=== PATIENT | male | born 1950 | race Caucasian/White ===

== ENCOUNTER 2017-06-08 09:09 | Inpatient (IN) | payer MEDICARE ==
[~2017-06-08] VITALS: Ht 185.4 cm; Wt 93.5 kg
[2017-06-08] VITALS (9 sets, daily range): BP systolic 130–174; BP diastolic 63–78; PULSE 77–97; RESP 16; TEMP 98–98.7; O2SAT 95–98
[~2017-06-08 09:09] MED LIST: AMLO5 PO; IRBE150T49 PO; PLAV75TA29 PO
--- NOTE | 2017-06-08 09:36 | PD.HP.UP ---
H&P Update Note The Pre-Admit History and Physical Examination regarding the above named patient was reviewed (including, but not limited to, vital signs, heart, lungs, co-morbid conditions), and upon re-examination it is noted that: the patient's condition has not significantly changed since the last examination. Kosta Alvarado MD Jun 08, 2017 09:36
[2017-06-08] MEDS ORDERED: LACTATED RINGER'S 1000 ML IV PRN (09:45)
[2017-06-08] MEDS ORDERED: POVIDONE IODINE 5% (ANTISEPSIS KIT) 4 APPLICATIONS EACH NARE PRN (09:45)
[2017-06-08] MEDS ORDERED: CHLORHEXIDINE GLUCONATE 2 % 1 PACK (2 CLOTHS) TOPICAL PRN (09:45)
[2017-06-08] MEDS ORDERED: SODIUM CHLORID 0.9% 500 ML IV PRN (09:45)
[2017-06-08] MEDS ORDERED: METOPROLOL TARTRATE 25 MG TAB PO PRN (09:45)
[2017-06-08] MEDS ORDERED: METRONIDAZOLE 500 MG/100 ML ISONTONIC SOLN IV SCH (10:00)
[2017-06-08] MEDS ORDERED: ceFAZolin 1,000 MG/NS 100 ML IV SCH ×2 (10:00)
[2017-06-08] MEDS ORDERED: ALVIMOPAN 12 MG CAPSULE - On Call PO SCH (10:00)
[2017-06-08] MEDS ORDERED: DEXT 5%-NACL 0.9% 1000 ML INJ 1,000 ML IV SCH (10:00)
[2017-06-08 10:25] LABS: BACTERIA, URINE OCC /hpf; BILIRUBIN, URINE NEG (NEG); BLOOD, URINE NEG (NEG); GLUCOSE,URINE NEG (NEG); HYALINE CAST, URINE 12 /lpf (RARE); KETONE, URINE TRACE mg/dL (NEG); MUCUS URINE FEW /lpf (OCC); NITRITE,URINE NEG (NEG); URINE COLOR LIGHT-RED (YELLW/STRAW); URINE LEUKOCYTE ESTERASE SMALL (NEG)
[2017-06-08 10:42] LABS: AUTOMATED NEUTROPHIL # 3.4 TH/MM3 (1.8-7.7); BASOPHIL # 0.1 TH/MM3 (0-0.2); BASOPHIL % 1.4 % (0.0-2.0); EOSINOPHIL # 0.1 TH/MM3 (0-0.4); EOSINOPHIL % 1.6 % (0.0-4.0); HEMOGLOBIN 13.2 GM/DL (13.0-17.0); LYMPH % 11.9 % (9.0-44.0); LYMPHOCYTE # 0.5 TH/MM3 (1.0-4.8); MEAN CORPUSCULAR HEMOGLOBIN 28.5 PG (27.0-34.0); MEAN CORPUSCULAR HGB CONC 33.9 % (32.0-36.0); MONO % 9.4 % (0.0-8.0); MONOCYTE # 0.4 TH/MM3 (0-0.9); NEUT % 75.7 % (16.0-70.0); PLATELET COUNT 245 TH/MM3 (150-450); RED BLOOD COUNT 4.65 MIL/MM3 (4.50-5.90); RED CELL DISTRIBUTION WIDTH 16.6 % (11.6-17.2); WHITE BLOOD COUNT 4.5 TH/MM3 (4.0-11.0)
--- NOTE | 2017-06-08 10:47 | RADRPT ---
EXAM DATE/TIME: 06/08/2017 09:47 [facility] COMPARISON: No previous studies available for comparison. INDICATIONS : Evaluate for pneumonia, pneumothorax, or communicable disease. Pre op for ascending colectomy today. MEDICAL HISTORY : Hypertension. SURGICAL HISTORY : AAA repair. Multiple stents. ENCOUNTER: Initial ACUITY: 1 day PAIN SCORE: 0/10 LOCATION: Bilateral chest FINDINGS: A single view of the chest demonstrates the lungs to be symmetrically aerated without evidence of mas s, infiltrate or effusion. Thoracic stent graft is evident. The cardiomediastinal contours are unrem arkable. Osseous structures are intact. CONCLUSION: Thoracic stent graft. Lungs are clear. Johnie Hahn MD FACR on June 08, 2017 at 10:44 Board Certified Radiologist. This report was verified electronically.
[2017-06-08 10:50] LABS: PROTHROMBIN TIME - PATIENT 10.6 SEC (9.8-11.6)
[2017-06-08 10:59] LABS: ALBUMIN 3.5 GM/DL (3.4-5.0); AST (GOT) 12 U/L (15-37); BICARBONATE 21.7 MEQ/L (21.0-32.0); BLOOD UREA NITROGEN 6 MG/DL (7-18); CALCIUM 9.9 MG/DL (8.5-10.1); CHLORIDE 107 MEQ/L (98-107); CREATININE 1.16 MG/DL (0.60-1.30); GLOMERULAR FILTRATION RATE 63 ML/MIN (>89); GLUCOSE,RANDOM 109 MG/DL (74-106); SODIUM (NA) 140 MEQ/L (136-145)
[2017-06-08 11:00] LABS: ALT (GPT) 19 U/L (12-78)
[2017-06-08 11:02] LABS: ALKALINE PHOSPHATASE 88 U/L (45-117); TOTAL BILIRUBIN ADULT 0.5 MG/DL (0.2-1.0); TOTAL PROTEIN 7.6 GM/DL (6.4-8.2)
[2017-06-08] MEDS ORDERED: fentaNYL CITRATE 250 MCG/5 ML AMP ONE ×2 (11:24→12:54)
[2017-06-08] MEDS ORDERED: ACETAMINOPHEN 1000 MG/100 ML 100 ML IV ONE (11:25)
[2017-06-08] MEDS ORDERED: MIDAZOLAM HCL 2 MG/2 ML VIAL ONE (12:50)
[2017-06-08] MEDS ORDERED: DO NOT ADM ANY ANTICOAGULANT DRUGS PRN (13:26)
[2017-06-08] MEDS: D5-NS + KCL 20 MEQ INJ 1,000 ML IV SCH ×2 (13:34→20:10)
[2017-06-08] MEDS ORDERED: BENZOCAINE 6 MG/MENTHOL 10 MG LOZENGE BUCCAL PRN (13:45)
[2017-06-08] MEDS ORDERED: MORPHINE SULFATE 30 MG/30 ML PCA IV SCH (13:45)
[2017-06-08] MEDS ORDERED: POTASSIUM CHLOR 40 MEQ PREMIX 100 ML IV PRN (13:45)
[2017-06-08] MEDS ORDERED: ACETAMINOPHEN 325 MG TAB PO PRN (13:45)
[2017-06-08] MEDS ORDERED: BUPIVACAINE HCL PF 0.5% 30 ML VIAL NB SCH (13:45)
[2017-06-08] MEDS ORDERED: Post-op Orders (for Pharmacy) XX ONE (13:45)
[2017-06-08] MEDS ORDERED: ENALAPRILAT 2.5 MG/2 ML VIAL IV PUSH PRN (13:45)
[2017-06-08] MEDS ORDERED: ENALAPRILAT 1.25 MG/ML VIAL IV PUSH PRN (13:45)
[2017-06-08] MEDS ORDERED: POTASSIUM CHLOR 20 MEQ PREMIX 100 ML IV PRN (13:45)
[2017-06-08] MEDS ORDERED: ACETAMINOPHEN/HYDROcodone 325 MG/5 MG TAB PO PRN ×2 (13:45)
[2017-06-08] MEDS ORDERED: NALOXONE HCL 0.4 MG/ML AMP IV PUSH PRN (13:45)
[2017-06-08] MEDS ORDERED: *morphine SULFATE 8 MG/ML PERIprocedure ONLY ONE ×2 (13:51→15:17)
[2017-06-08] MEDS ORDERED: *ENALAPRILAT 1.25 MG/ML VIAL PERIprocedural Use ONLY ONE (14:04)
[2017-06-08] MEDS: amLODIPine BESYLATE 5 MG TAB PO SCH (15:00)
[2017-06-08] MEDS ORDERED: hydrALAZINE HCL 20 MG/ML VIAL ONE (16:15)
[2017-06-08] MEDS ORDERED: hydrALAZINE HCL 20 MG/ML VIAL IV ONE (16:30)
[2017-06-08] MEDS: ONDANSETRON HCL 4 MG/2 ML VIAL IV PUSH PRN ×2 (17:00→20:28)
[2017-06-08] MEDS: KETOROLAC TROMETHAMINE 30 MG/ML (IVP) VIAL IVP PRN (17:20)
--- NOTE | 2017-06-08 20:04 | EKG ---
Date Performed: 06/08/2017 Time Performed: 09:45:03 PTAGE: 67 years EKG: Sinus rhythm POSSIBLE INFERIOR MYOCARDIAL INFARCTION , PROBABLY OLD BORDERLINE ECG NO PREVIOUS TRACING DOCTOR: Killian Duran Interpretating Date/Time 06/08/2017 20:03:24
[2017-06-08] MEDS: metroNIDAZOLE 500 MG INJ 100 ML IV SCH (20:11)
[2017-06-08] MEDS: METOCLOPRAMIDE HCL 10 MG/2 ML VIAL IVS SCH (20:12)
[2017-06-08] MEDS: PCA - TOTAL MG MORPHINE DELIVERED PER SHIFT SCH (22:00)
[2017-06-09] VITALS (17 sets, daily range): BP systolic 157–186; BP diastolic 72–89; PULSE 80–99; RESP 16–20; TEMP 96.2–98.6; O2SAT 95–97
[2017-06-09] MEDS: D5-NS + KCL 20 MEQ INJ 1,000 ML IV SCH ×5 (01:00→18:51)
[2017-06-09] MEDS: metroNIDAZOLE 500 MG INJ 100 ML IV SCH ×2 (03:56→13:20)
[2017-06-09 05:18] LABS: AUTOMATED NEUTROPHIL # 7.7 TH/MM3 (1.8-7.7); BASOPHIL % 0.1 % (0.0-2.0); HEMATOCRIT 36.7 % (39.0-51.0); HEMOGLOBIN 12.1 GM/DL (13.0-17.0); LYMPH % 4.8 % (9.0-44.0); LYMPHOCYTE # 0.4 TH/MM3 (1.0-4.8); MEAN CELL VOLUME 85.7 FL (80.0-100.0); MEAN CORPUSCULAR HEMOGLOBIN 28.4 PG (27.0-34.0); MEAN CORPUSCULAR HGB CONC 33.1 % (32.0-36.0); MEAN PLATELET VOLUME 7.2 FL (7.0-11.0); MONOCYTE # 0.7 TH/MM3 (0-0.9); NEUT % 87.1 % (16.0-70.0); PLATELET COUNT 229 TH/MM3 (150-450); RED BLOOD COUNT 4.28 MIL/MM3 (4.50-5.90); RED CELL DISTRIBUTION WIDTH 16.5 % (11.6-17.2); WHITE BLOOD COUNT 8.9 TH/MM3 (4.0-11.0)
[2017-06-09 05:49] LABS: BICARBONATE 22.9 MEQ/L (21.0-32.0); CREATININE 1.1 MG/DL (0.60-1.30)
[2017-06-09] MEDS: PCA - TOTAL MG MORPHINE DELIVERED PER SHIFT SCH ×3 (06:00→20:11)
--- NOTE | 2017-06-09 08:09 | HHI.PR ---
Subjective Remarks C/R Surg POD #1 afebrile, VSS UO good Objective - Vital Signs Date Time Temp Pulse Resp B/P (MAP) Pulse Ox O2 Delivery O2 Flow Rate FiO2 06/09/17 07:00 92 06/09/17 06:00 16 06/09/17 03:00 98.6 158/72 (100) 95 06/08/17 16:45 Room Air Result Diagram: 06/09/17 0446 06/09/17 0446 Other Results PE alert Abd - soft, flat, wound dry A/P Assessment and Plan Imp: stable post-op OOB decr IVF tx to floor Kosta Alvarado MD Jun 09, 2017 08:09
[2017-06-09] MEDS: PANTOPRAZOLE SOD 40 MG DELAYED RELEASE TAB PO SCH (09:00)
[2017-06-09] MEDS: ALVIMOPAN 12 MG CAPSULE - Post-op dosing PO SCH ×2 (09:19→20:02)
[2017-06-09] MEDS: PANTOPRAZOLE SODIUM 40 MG VIAL IVP SCH (09:20)
[2017-06-09] MEDS: LOSARTAN 50 MG TAB PO SCH (09:20)
[2017-06-09] MEDS: METOCLOPRAMIDE HCL 10 MG/2 ML VIAL IVS SCH ×2 (09:21→20:02)
[2017-06-09] MEDS: amLODIPine BESYLATE 5 MG TAB PO SCH (09:21)
[2017-06-09] MEDS: KETOROLAC TROMETHAMINE 30 MG/ML (IVP) VIAL IVP PRN ×2 (10:24→20:03)
[2017-06-09] MEDS ORDERED: AMLO5TAB2 PO (10:32)
[2017-06-09] MEDS ORDERED: VALS1TAB65 PO (10:32)
[2017-06-09] MEDS ORDERED: ACETAMINOPHEN 650 MG/20.3 ML UDC PO PRN (10:45)
[2017-06-09] MEDS: VALSARTAN 160 MG TAB PO SCH (13:00)
[2017-06-09] MEDS: HEPARIN SODIUM - SQ 10,000 UNITS/ML VIAL SQ SCH (13:19)
[2017-06-09] MEDS: ONDANSETRON HCL 4 MG/2 ML VIAL IV PUSH PRN (20:03)
[2017-06-09] MEDS ORDERED: ALVIMOPAN 12 MG CAPSULE PO SCH (21:00)
[2017-06-10 00:19] VITALS: BP 146/71; PULSE 98; RESP 18; TEMP 98.4; O2SAT 97
[2017-06-10] MEDS: HEPARIN SODIUM - SQ 10,000 UNITS/ML VIAL SQ SCH ×2 (01:20→13:00)
[2017-06-10] MEDS: PCA - TOTAL MG MORPHINE DELIVERED PER SHIFT SCH ×2 (05:45→14:00)
[2017-06-10 06:18] LABS: AUTOMATED NEUTROPHIL # 5.1 TH/MM3 (1.8-7.7); BASOPHIL % 0.3 % (0.0-2.0); EOSINOPHIL % 0.6 % (0.0-4.0); HEMATOCRIT 36.9 % (39.0-51.0); HEMOGLOBIN 12.4 GM/DL (13.0-17.0); LYMPH % 9.9 % (9.0-44.0); LYMPHOCYTE # 0.6 TH/MM3 (1.0-4.8); MEAN CELL VOLUME 85.2 FL (80.0-100.0); MEAN CORPUSCULAR HEMOGLOBIN 28.7 PG (27.0-34.0); MEAN CORPUSCULAR HGB CONC 33.6 % (32.0-36.0); MEAN PLATELET VOLUME 7.6 FL (7.0-11.0); MONO % 8.6 % (0.0-8.0); MONOCYTE # 0.5 TH/MM3 (0-0.9); NEUT % 80.6 % (16.0-70.0); PLATELET COUNT 223 TH/MM3 (150-450); RED BLOOD COUNT 4.33 MIL/MM3 (4.50-5.90); RED CELL DISTRIBUTION WIDTH 16.9 % (11.6-17.2); WHITE BLOOD COUNT 6.3 TH/MM3 (4.0-11.0)
[2017-06-10 06:48] LABS: BICARBONATE 24.3 MEQ/L (21.0-32.0); CALCIUM 9.7 MG/DL (8.5-10.1); CREATININE 0.95 MG/DL (0.60-1.30)
[2017-06-10 08:00] VITALS: BP_SYST 178; BP_SYST 180; BP_DIAS 80; BP_DIAS 85; PULSE 111; RESP 18; TEMP 97.1; O2SAT 95
[2017-06-10] MEDS: amLODIPine BESYLATE 5 MG TAB PO SCH (08:07)
[2017-06-10] MEDS: ALVIMOPAN 12 MG CAPSULE - Post-op dosing PO SCH (08:07)
[2017-06-10] MEDS: LOSARTAN 50 MG TAB PO SCH (08:07)
[2017-06-10] MEDS: PANTOPRAZOLE SOD 40 MG DELAYED RELEASE TAB PO SCH (08:07)
[2017-06-10] MEDS: METOCLOPRAMIDE HCL 10 MG/2 ML VIAL IVS SCH (08:08)
[2017-06-10] MEDS: KETOROLAC TROMETHAMINE 30 MG/ML (IVP) VIAL IVP PRN (08:08)
[2017-06-10] MEDS: VALSARTAN 160 MG TAB PO SCH (08:14)
[2017-06-10] MEDS: PANTOPRAZOLE SODIUM 40 MG VIAL IVP SCH (09:00)
[2017-06-10] MEDS: D5-NS + KCL 20 MEQ INJ 1,000 ML IV SCH (09:35)
[2017-06-10 12:00] VITALS: BP 148/70; PULSE 100; RESP 18; TEMP 97.5; O2SAT 96
[2017-06-10 16:00] VITALS: BP 141/71; PULSE 111; RESP 19; TEMP 98; O2SAT 97
--- NOTE | 2017-06-12 00:02 | MP ---
cc: Kosta Alvarado MD DATE OF OPERATION: 06/08/2017 PREOPERATIVE DIAGNOSES: Crohn disease with obstructing ileitis. PROCEDURE: Laparoscopic assisted resection of the terminal ileum and ascending colon. POSTOPERATIVE DIAGNOSIS: Severe Crohn disease of the terminal ileum with obstruction. SURGEON: Kosta Alvarado MD CLINIC OFFICE COORDINATOR: Casimiro Ramirez MD DESCRIPTION OF PROCEDURE: The patient was placed in the supine position. After adequate general anesthesia, his legs were placed in universal stirrups and supported appropriately. The abdomen and perineum were then prepped with Betadine solution and draped in the usual sterile fashion. With Dr. Ramirez's assistance, a small infraumbilical incision was made and Veress needle inserted establishing pneumoperitoneum. A 5 mm trocar was then placed under direct vision. Laparoscope was inserted and the second trocar was placed in the midline suprapubic position. Exploration revealed rather extensive fat wrapping and thickening of the distal ileum for about 12-15 inches. The right colon appeared to be fairly normal, but was heavily encased in omentum. There were quite a few adhesions in the right lower quadrant as well from the previous appendectomy. The remainder of the small bowel appeared to be grossly normal. There was also a significant sigmoid loop in the pelvis. The liver had no gross visible abnormalities and the gallbladder appeared to be a normal color. With traction on the cecum the loops of terminal ileum were mobilized up off the right lower quadrant and the right colon was mobilized by dividing along the white line of T[place]t. Dissection then proceeded up toward the hepatic flexure. It was somewhat difficult due to the large size of the omentum and adhesions and fat wrapping in the terminal ileum. The specimen was also quite large due to the inflammatory changes and obstruction of the terminal ileum. Therefore, after mobilization a small midline incision was made, releasing the pneumoperitoneum and completing the remainder of the procedure in an open fashion. The specimen was quite large and required a little additional incision to enable it to be mobilized on to the abdominal wall. The hepatic flexure was taken down. Lesser sac entered under direct vision and the gastrocolic omentum taken off the transverse colon. There did appear to be a skip area in the terminal ileum just proximal to the area of severe narrowing. The bowel proximal to this did appear to be normal. The bowel was then divided in the soft bowel with the SHA stapling device. The colon was divided in the right colon, taking the right colic and ileocolic vessels with the resection. After removing the specimen, the bowel continuity was restored by firing a SHA stapler across the antimesenteric ends of the bowel, closed the enterotomy with a TA 60 stapler. Mesenteric defect closed with a running Vicryl suture and a 3-0 Vicryl crotch suture was placed as well. The bowel returned to the abdominal cavity. Midline incision was closed using a running #1 PDS suture to reapproximate the midline fascia. The subcutaneous tissue was irrigated copiously and the skin closed with a running subcuticular Vicryl suture. The 2 trocar sites were similarly closed with subcuticular Vicryl sutures. The wound area washed with normal saline and dried, sterile dressing of Telfa and gauze applied. The patient tolerated the procedure quite well and was brought to the recovery room in stable condition. Sponge and needle counts were correct at the end of the procedure. Kosta Alvarado MD AHR/rt , 11:15 PM , 12:02 AM
== END 2017-06-10 18:48 | disposition home or self-care (01) | DRG 330 ==
LOC: HSDI 09:09 → HCPC 16:50 → HCIS 06-09 09:39 → N07A 06-09 16:16
PROVIDERS: ADMIT Colon & Rectal Surgery; ATTEND Colon & Rectal Surgery
PROC: 0DTH0ZZ Resection of Cecum, Open Approach (ICD-10-PCS; 2017-06-08)
PROC: 0DBK0ZZ Excision of Ascending Colon, Open Approach (ICD-10-PCS; 2017-06-08)
PROC: 0DBB0ZZ Excision of Ileum, Open Approach (ICD-10-PCS; principal; 2017-06-08 11:48)
DX: K50.012 Crohn's disease of small intestine with intestinal obstruction (principal); I10 Essential (primary) hypertension; Z79.02 Long term (current) use of antithrombotics/antiplatelets
CPT/HCPCS: 71045; 80048; 80053; 81001; 85025; 85610; 85730; 86850; 86900; 86901; 88307; 93005; 94150; C9113; J0131; J0360; J0690; J1644; J1885; J2250; J2270; J2405; J2765; J3010; J3480; J7120